=== PATIENT | female | born 1990 | race African-American/Black ===

== ENCOUNTER 2018-11-16 10:31 | Outpatient (CLI) | payer OTHER ==
--- NOTE | 2018-11-16 13:02 | ULT ---
ULTRASOUND OBSTETRICAL COMPLETE: DATE: 11/16/2018. HISTORY: A 28-year-old female for anatomical survey. FINDINGS: number: Humphreys. lie: Cephalic. Maternal cervix: Obscured. Placenta: Posterior and low-lying. Uncertainty regarding location of internal cervical os makes it d ifficult to evaluate for marginal placenta previa. Amniotic fluid volume: 10.5 cm. heart rate: 155 b.p.m. The following anatomy is visualized, with no evidence of anomalies: Head, lateral ventricles, cerebellum, nose and lips, spine, upper limbs, lower limbs, four chamber he art, umbilical cord, cord insertion, stomach, kidneys, and bladder. biometry: Head circumference (HC): 17.5 cm 20 w 0 d Biparietal diameter (BPD): 4.7 cm 20 w 1 d Abdominal circumference (AC): 15.4 cm 20 w 4 d Femur length (FL): 3.4 cm 20 w 5 d Average ultrasound age (AUA): 20 w 3 d Estimated date of delivery (JONATHAN): 04/02/2019. Last menstrual period (LMP): 06/26/2018. Gestational age by LMP: 20 w 3 d. Estimated weight (EFW): 359 g +/- 53 g (0 lb 13 oz +/- 2 oz). IMPRESSION: 1. Live 2nd trimester intrauterine gestation. 2. Estimated gestational age of 20 weeks, 3 days. 3. Vertex lie. 4. No anatomical abnormalities. nikole [] POS: [facility]
== END 2018-11-16 10:32 | disposition home or self-care (01) ==
LOC: SCSULT 10:31
PROVIDERS: ATTEND Family Medicine
DX: O09.892 Supervision of other high risk pregnancies, second trimester (principal); Z3A.20 20 weeks gestation of pregnancy
CPT/HCPCS: 76805

== ENCOUNTER 2019-03-26 05:18 | Inpatient (IN) | payer OTHER ==
[2019-03-26] MEDS ORDERED: Ondansetron PF 4 MG/2 ML Vial IVP PRN ×3 (05:54→11:50)
[2019-03-26] MEDS ORDERED: Promethazine HCl 25 MG/ML VIAL IM PRN ×3 (05:54→11:50)
[2019-03-26] MEDS ORDERED: Lactated Ringer's 1,000 ML IV SCH (05:54)
[2019-03-26] MEDS ORDERED: Bicitra 30 ML UDCUP PO SCH (05:54)
[2019-03-26] MEDS ORDERED: CEFAZOLIN 2 GM in Premix Bag 1 BAG IVPB SCH (05:54)
[2019-03-26] MEDS ORDERED: hydrALAZINE 20 MG/ML VIAL SLOW IVP PRN ×2 (05:54→11:50)
[2019-03-26 05:57] VITALS: BMI 33.2
[2019-03-26 06:25] LABS: Hemoglobin 11.5 g/dL (12.0-16.0); Mean Corpuscular HGB CONC 31.8 g/dL (32.0-36.0); Mean Corpuscular Hemoglobin 28.8 pg (27.0-31.0); Mean Corpuscular Volume 90.6 fL (78.0-98.0); Mean Platelet Volume 10.3 fL (7.4-10.4); Platelet Count 163 thou/uL (130-400); RBC Distribution Width 12.4 % (11.5-14.5); Red Blood Cell (RBC) Count 3.98 mill/uL (4.20-5.40); White Blood Cell (WBC) Count 6.7 thou/uL (4.8-10.8)
[2019-03-26 07:07] LABS: Syphilis Antibody Nonreactive (Nonreactive); Syphilis Antibody Index 0.04 S/CO (<1.00 Non-Reactive)
[2019-03-26] MEDS ORDERED: MORPHINE 5 MG/10 ML PF VIAL ONE (07:14)
[2019-03-26] MEDS ORDERED: Oxytocin 10 UNITS/ML VIAL ONE (07:14)
[2019-03-26 07:27] LABS: HBSAg Index 0.35 S/CO (0-0.99); Hep B Surf Ag Non-Reactive S/CO (NonReactive)
[2019-03-26] MEDS ORDERED: CEFAZOLIN 2 GM in Sodium Chloride 0.9% 100 ML IVPB SCH (07:30)
[2019-03-26] MEDS ORDERED: Phenylephrine HCL 10 MG/ML VIAL ONE (07:33)
[2019-03-26] MEDS ORDERED: Methylergonovine 0.2 MG/ML VIAL ONE (08:07)
[2019-03-26] MEDS ORDERED: Carboprost 250 MCG/ML AMP ONE ×2 (08:07→08:16)
[2019-03-26] MEDS ORDERED: Ondansetron PF 4 MG/2 ML Vial ONE ×2 (08:27→10:15)
[2019-03-26] MEDS ORDERED: Meperidine HCl/PF 25 MG/ML VIAL SLOW IVP PRN (08:47)
[2019-03-26] MEDS ORDERED: Naloxone HCl 0.4 mg/ml Vial IV PRN (08:47)
[2019-03-26] MEDS ORDERED: L&D-Morphine 4 MG/ML VIAL SLOW IVP PRN (08:47)
[2019-03-26] MEDS ORDERED: Promethazine HCl 25 MG SUPP PR PRN (08:47)
[2019-03-26] MEDS ORDERED: Ketorolac Tromethamine 30 MG/ML VIAL IVP PRN (08:47)
[2019-03-26] MEDS ORDERED: Ondansetron HCl/PF 4 MG/2 ML Vial IVP PRN (08:47)
[2019-03-26] MEDS ORDERED: HYDROmorphone 2 MG/ML VIAL SLOW IVP PRN (08:47)
[2019-03-26] MEDS ORDERED: Naloxone HCl 0.4 mg/ml Vial IVP PRN ×2 (08:47)
[2019-03-26] MEDS ORDERED: diphenhydrAMINE 50 MG/ML VIAL IVP PRN (08:47)
[2019-03-26] MEDS ORDERED: Ketorolac Tromethamine 30 MG/ML VIAL IVP SCH (09:00)
[2019-03-26] MEDS ORDERED: Communication Order-Pharmacy FS SCH (09:00)
[2019-03-26] MEDS ORDERED: PHENYLEPHRINE-NS 100 MCG/ML 10 ML SYRINGE ONE (10:15)
[2019-03-26] MEDS ORDERED: NS / Oxytocin 40 units/1000ml 1,000 ML ONE (11:27)
[2019-03-26] MEDS ORDERED: NS / Oxytocin 40 units/1000ml 1,000 ML IV SCH (11:50)
[2019-03-26] MEDS ORDERED: Lanolin Ointment 7 GM TUBE TOP PRN (11:50)
[2019-03-26] MEDS ORDERED: Adacel (T-DAP) 0.5 ML SYRINGE IM ONE (11:50)
[2019-03-26] MEDS: Docusate Calcium (SURFAK) 240 MG CAP PO SCH ×2 (14:28→21:36)
[2019-03-26] MEDS: Prenatal Vitamin 1 TAB PO SCH (14:28)
[2019-03-26] MEDS: Ferrous Sulfate 325 MG TAB PO SCH ×2 (14:28→21:36)
[2019-03-26] MEDS: Ketorolac Tromethamine 30 MG/ML VIAL IVP SCH ×3 (15:05→23:47)
[2019-03-26] MEDS ORDERED: Meperidine HCl/PF 25 MG/ML VIAL IM PRN (21:00)
[2019-03-26] MEDS ORDERED: HYDROcodone/Acetaminophen 5/325 mg Tablet PO PRN (21:00)
[2019-03-27] MEDS: HYDROcodone/Acetaminophen 5/325 mg Tablet PO PRN ×4 (04:08→17:42)
[2019-03-27] MEDS: Ibuprofen 800 MG TAB PO SCH ×3 (06:01→21:59)
[2019-03-27 06:47] LABS: Hemoglobin 9.3 g/dL (12.0-16.0); Mean Corpuscular HGB CONC 31.9 g/dL (32.0-36.0); Mean Corpuscular Hemoglobin 29.7 pg (27.0-31.0); Mean Corpuscular Volume 92.9 fL (78.0-98.0); Mean Platelet Volume 9.9 fL (7.4-10.4); Platelet Count 135 thou/uL (130-400); RBC Distribution Width 12.3 % (11.5-14.5); Red Blood Cell (RBC) Count 3.12 mill/uL (4.20-5.40); White Blood Cell (WBC) Count 6.6 thou/uL (4.8-10.8)
[2019-03-27] MEDS: Simethicone Chewable 80 MG TAB PO PRN ×2 (09:02→22:00)
[2019-03-27] MEDS: Ferrous Sulfate 325 MG TAB PO SCH ×2 (09:02→22:00)
[2019-03-27] MEDS: Prenatal Vitamin 1 TAB PO SCH (09:02)
[2019-03-27] MEDS: Docusate Calcium (SURFAK) 240 MG CAP PO SCH ×2 (09:02→22:00)
[2019-03-28] MEDS: HYDROcodone/Acetaminophen 5/325 mg Tablet PO PRN (01:41)
[2019-03-28] MEDS: Ibuprofen 800 MG TAB PO SCH ×3 (06:34→21:23)
[2019-03-28] MEDS: Docusate Calcium (SURFAK) 240 MG CAP PO SCH ×2 (09:52→21:23)
[2019-03-28] MEDS: Ferrous Sulfate 325 MG TAB PO SCH ×2 (09:52→21:32)
[2019-03-28] MEDS: Prenatal Vitamin 1 TAB PO SCH (09:52)
[2019-03-29] MEDS: Ibuprofen 800 MG TAB PO SCH (06:52)
[2019-03-29 08:52] VITALS: BP 123/76; TEMP 98.4
[2019-03-29] MEDS: Docusate Calcium (SURFAK) 240 MG CAP PO SCH (09:37)
[2019-03-29] MEDS: Prenatal Vitamin 1 TAB PO SCH (09:37)
[2019-03-29] MEDS: Ferrous Sulfate 325 MG TAB PO SCH (09:37)
== END 2019-03-29 11:10 | disposition home or self-care (01) | DRG 788 ==
LOC: L&D 05:18 → 3SW 11:58
PROVIDERS: ADMIT Family Medicine; ATTEND Family Medicine
PROC: 10D00Z1 Extraction of Products of Conception, Low, Open Approach (ICD-10-PCS; principal; 2019-03-26)
DX: O34.211 Maternal care for low transverse scar from previous cesarean delivery (principal); O69.81X0 Labor and delivery complicated by cord around neck, without compression, not applicable or unspecified; Z3A.39 39 weeks gestation of pregnancy; Z37.0 Single live birth
CPT/HCPCS: 36415; 51702; 85027; 86780; 86850; 86900; 86901; 87340; J0690; J1885; J2210; J2274; J2370; J2405; J2590; J3490